=== PATIENT | female | born 1960 | race Caucasian/White ===

== ENCOUNTER 2016-07-14 11:05 | Emergency (ER) | payer OTHER, SELFPAY ==
[2016-07-14] MEDS ORDERED: Fentanyl 100 MCG/2 ML VIAL ONE ×2 (11:33→12:34)
[2016-07-14] MEDS ORDERED: Sodium Chloride 0.9% 1,000 ML ONE (11:34)
[2016-07-14] MEDS ORDERED: Ondansetron HCl/PF 4 MG/2 ML Vial ONE ×3 (11:34→13:21)
[2016-07-14] MEDS ORDERED: Acetaminophen 500 MG TAB ONE (11:34)
[2016-07-14 12:27] LABS: ALT (SGPT) 87 U/L (8-55); AST (SGOT) 61 U/L (5-34); Alkaline Phosphatase 161 U/L (40-150); Anion Gap 19 mmol/L (10-20); BUN (Urea Nitrogen) 11 mg/dL (9.8-20.1); Bilirubin, Total 0.7 mg/dL (0.2-1.2); Calc. Creatinine Clearance 0 mL/min (70-130); Calcium 9.7 mg/dL (7.8-10.44); Carbon Dioxide 19 mmol/L (22-29); Chloride 102 mmol/L (98-107); Estimated GFR-MDRD 69; Globulin 3.8 g/dL (2.4-3.5); Glucose 182 mg/dL (70-105); Lipase 7 U/L (8-78); Potassium 3.5 mmol/L (3.5-5.1); Protein, Total 7.8 g/dL (6.0-8.3); Sodium 136 mmol/L (136-145)
[2016-07-14 12:35] LABS: Blood, Urine Moderate (Negative); Clarity Slightly Cloudy (Clear); Glucose, Urine (Dipstick) Negative (Negative); Leukocyte Negative (Negative); Nitrite Positive (Negative); Protein, Urine (Dipstick) > or equal to 300 mg/dL (Neg-Trace); Urobilinogen 0.2 mg/dL (0.2-1.0); pH, Urine 5.5 (5.0-9.0)
[2016-07-14 12:35] LABS: Band 8 % (5-11); Eosinophils 2 % (0-10); Hemoglobin 14.7 g/dL (12.0-16.0); Lymphocytes 9 % (21-51); MDiff Complete? YES; Mean Corpuscular HGB CONC 33.5 g/dL (32.0-36.0); Mean Corpuscular Hemoglobin 31.6 pg (27.0-31.0); Mean Corpuscular Volume 94.2 fl (81.0-99.0); Mean Platelet Volume 9.4 fL (7.4-10.4); Monocytes 5 % (0-10); Neutrophil 76 % (42-75); PLT Morphology Comment Appears Adequate; Platelet Count 180 thou/uL (130-400); RBC Distribution Width 11.9 % (11.5-14.5); Red Blood Cell (RBC) Count 4.65 mill/uL (4.20-5.40)
[2016-07-14 12:36] LABS: Bilirubin Negative (Negative); Icto Negative (Negative)
[2016-07-14 12:39] LABS: Bacteria/HPF 3+ HPF (None Seen); Other Microscopic Description NO; Squamous Epithelial 0-3 HPF (0-3); WBC/HPF 0-3 HPF (0-3)
== END 2016-07-14 13:27 | disposition short-term general hospital (02) ==
LOC: NAV ERS 11:05
DX: R10.10 Upper abdominal pain, unspecified (principal); R50.9 Fever, unspecified; R11.2 Nausea with vomiting, unspecified; F17.210 Nicotine dependence, cigarettes, uncomplicated; Z79.899 Other long term (current) drug therapy
CPT/HCPCS: 80053; 81003; 81015; 82150; 83605; 83690; 85025; 87040; 87149; 94760; 96361; 96374; 96375; 96376; J2405; J3010; J7050

== ENCOUNTER 2024-12-27 11:26 | Inpatient (IN) | payer MEDICARE ==
[2024-12-27] MEDS ORDERED: valACYclovir 500 MG TAB PO PRN (18:15)
[2024-12-27] MEDS ORDERED: Albuterol 200 PUFF (6.7GM INHALER) INH PRN (18:15)
[2024-12-27] MEDS: Mometasone 200 MCG/Formoterol 5 MCG 60 PUFF INHALER INH SCH (20:43)
[2024-12-27] MEDS: Senokot S 8.6-50 MG TAB PO SCH (20:44)
[2024-12-27] MEDS: Famotidine 20 MG TAB PO SCH (20:44)
[2024-12-28 05:57] LABS: #Basophils 0.1 thou/uL (0.0-0.2); #Eosinophils 0.0 thou/uL (0.0-0.7); #Lymphocytes 3.6 thou/uL (1.20-3.40); #Monocytes 1.0 thou/uL (0.11-0.59); #Neutrophils 10.3 thou/uL (1.40-6.50); %Basophils 0.8 % (0.0-1.0); %Eosinophils 0.2 % (0.0-10.0); %Lymphocytes 23.9 % (21.0-51.0); %Monocytes 6.4 % (0.0-10.0); %Neutrophils 68.7 % (42.0-75.0); Hematocrit 40.6 % (36.0-47.0); Hemoglobin 14.2 g/dL (12.0-16.0); Mean Corpuscular Hemoglobin 31.8 pg (27.0-31.0); Mean Corpuscular Volume 90.5 fl (78.0-98.0); Platelet Count 195 10x3/uL (130-400); Red Blood Cell (RBC) Count 4.48 mill/uL (4.20-5.40); White Blood Cell (WBC) Count 15.0 10x3/uL (4.8-10.8)
[2024-12-28 06:00] LABS: ALT (SGPT) 23 U/L (Less than 34); AST (SGOT) 22 U/L (11-34); Albumin 3.7 g/dL (3.1-4.5); Alkaline Phosphatase 59 U/L (40-110); Anion Gap 12 mmol/L (10-20); BUN (Urea Nitrogen) 25 mg/dL (9.8-20.1); Bilirubin, Total 0.3 mg/dL (0.3-1.2); Calc. Creatinine Clearance 105 mL/min (70-130); Calcium 9.5 mg/dL (7.8-10.44); Carbon Dioxide 34 mmol/L (23-31); Chloride 96 mmol/L (98-107); Globulin 2.8 g/dL (2.4-3.5); Glucose 86 mg/dL (80-115); Potassium 4.7 mmol/L (3.5-5.1); Sodium 137 mmol/L (136-145)
[2024-12-28] MEDS: predniSONE 20 MG TAB PO SCH (08:30)
[2024-12-28] MEDS: Allopurinol 100 MG TAB PO SCH (08:33)
[2024-12-28] MEDS: Enoxaparin 40 MG (0.4 mL) SYRINGE SC SCH (08:33)
[2024-12-28] MEDS: Losartan 50 MG TAB PO SCH (08:33)
[2024-12-28] MEDS: Multivit, Therapeutic 1 TAB PO SCH (08:34)
[2024-12-28] MEDS: Methocarbamol 500 MG TAB PO PRN (13:26)
[2024-12-29] MEDS: Acetaminophen 325 MG TAB PO PRN (07:28)
[2024-12-29] MEDS: valACYclovir 500 MG TAB PO SCH (07:32)
[2024-12-30] MEDS: FLU (Fluad Triv) 25-26 (65UP)PF 45 MCG/0.5 ML Syringe IM ONE (09:29)
[2024-12-30] MEDS: Guaifenesin DM 100-10/5 ML UDCUP PO PRN (21:01)
[2024-12-31] MEDS: predniSONE 20 MG TAB PO SCH (07:50)
[2025-01-01] MEDS: Sodium Chloride 0.65% Nasal 44 ML BOT EA NARE PRN (14:17)
[2025-01-02 06:06] LABS: Anion Gap 14 mmol/L (10-20); BUN (Urea Nitrogen) 23 mg/dL (9.8-20.1); Calc. Creatinine Clearance 98 mL/min (70-130); Calcium 9.3 mg/dL (7.8-10.44); Carbon Dioxide 35 mmol/L (23-31); Chloride 96 mmol/L (98-107); Glucose 95 mg/dL (80-115); Potassium 4.7 mmol/L (3.5-5.1); Sodium 140 mmol/L (136-145)
[2025-01-02 06:08] LABS: #Basophils 0.2 thou/uL (0.0-0.2); #Eosinophils 0.0 thou/uL (0.0-0.7); #Lymphocytes 4.2 thou/uL (1.20-3.40); #Monocytes 1.0 thou/uL (0.11-0.59); #Neutrophils 9.9 thou/uL (1.40-6.50); %Basophils 1.3 % (0.0-1.0); %Eosinophils 0.3 % (0.0-10.0); %Lymphocytes 27.4 % (21.0-51.0); %Monocytes 6.2 % (0.0-10.0); %Neutrophils 64.9 % (42.0-75.0); Hematocrit 34.2 % (36.0-47.0); Hemoglobin 12.0 g/dL (12.0-16.0); Mean Corpuscular Hemoglobin 31.5 pg (27.0-31.0); Mean Corpuscular Volume 89.7 fl (78.0-98.0); Platelet Count 172 10x3/uL (130-400); Red Blood Cell (RBC) Count 3.81 mill/uL (4.20-5.40); White Blood Cell (WBC) Count 15.3 10x3/uL (4.8-10.8)
[2025-01-03] MEDS: predniSONE 20 MG TAB PO SCH (08:20)
[2025-01-05 07:50] VITALS: BP 134/79; TEMP 97.8
[2025-01-06] MEDS ORDERED: predniSONE 20 MG TAB PO SCH (08:00)
[2025-01-09] MEDS ORDERED: predniSONE 20 MG TAB PO SCH (08:00)
== END 2025-01-05 10:10 | disposition home or self-care (01) | DRG 945 ==
LOC: NAV ACUTE 15:25
PROVIDERS: ADMIT Family Medicine; ATTEND Family Medicine
PROC: 5A09357 Assistance with Respiratory Ventilation, Less than 24 Consecutive Hours, Continuous Positive Airway Pressure (ICD-10-PCS; principal; 2024-12-27)
PROC: F07Z9ZZ Gait Training/Functional Ambulation Treatment (ICD-10-PCS; principal; 2024-12-27)
PROC: 3E02340 Introduction of Influenza Vaccine into Muscle, Percutaneous Approach (ICD-10-PCS; principal; 2024-12-27)
DX: R53.1 Weakness (principal); J96.21 Acute and chronic respiratory failure with hypoxia; J96.22 Acute and chronic respiratory failure with hypercapnia; J44.1 Chronic obstructive pulmonary disease with (acute) exacerbation; I10 Essential (primary) hypertension; M19.90 Unspecified osteoarthritis, unspecified site; F41.9 Anxiety disorder, unspecified; F32.A Depression, unspecified; Z99.81 Dependence on supplemental oxygen; Z98.890 Other specified postprocedural states; Z90.710 Acquired absence of both cervix and uterus; Z88.5 Allergy status to narcotic agent; Z88.8 Allergy status to other drugs, medicaments and biological substances; Z88.2 Allergy status to sulfonamides; Z79.899 Other long term (current) drug therapy; Z79.51 Long term (current) use of inhaled steroids; Z23 Encounter for immunization
CPT/HCPCS: 36415; 80048; 80053; 85025; 94640; 94664; J1650; J7512; J7626